=== PATIENT | female | born 1980 | race Caucasian/White ===

== ENCOUNTER → 2023-11-16 | Outpatient (CLI) | payer BC ==
--- NOTE | 2023-11-16 18:50 | MM ---
Reason for Exam: Screening (asymptomatic). Baseline mammogram. Patient History: Menarche at age 8. Patient has no children. Patient used Hormonal Contraceptives for 1 year. Mother had breast cancer at or over age 50. Last menstrual period: 10/17/2023 Risk Values: Sandra 5 year model risk: 1.5%. NCI Lifetime model risk: 19.9%. Prior Study Comparison: Patient's first Mammogram. Tissue Density: The breasts are heterogeneously dense, which may obscure small masses. Findings: Analyzed By CAD. Suspect global asymmetry upper quadrant left breast. Further evaluation recommended to put any suspicious persisting abnormality on additional views. Otherwise, no suspicious microcalcification or other discrete abnormality is seen. Overall Assessment: Incomplete: need additional imaging evaluation, BI-RAD 0 Management: Special View Mammogram of the left breast. Diagnostic Breast Ultrasound of the left breast. . [facility] will attempt to contact patient to return for supplemental views and ultrasound if indicated. Electronically signed and approved by: Sabrina Arias M.D. Radiologist
== END | disposition home or self-care (01) ==
LOC: RADMAMWWP 08:40
PROVIDERS: ATTEND Family Medicine
DX: Z12.31 Encounter for screening mammogram for malignant neoplasm of breast (principal); R92.333 Mammographic heterogeneous density, bilateral breasts; Z80.3 Family history of malignant neoplasm of breast; Z92.0 Personal history of contraception
CPT/HCPCS: 77063; 77067

== ENCOUNTER → 2023-11-24 | Outpatient (CLI) | payer BC ==
--- NOTE | 2023-11-24 10:54 | USB ---
Reason for Exam: Additional evaluation requested from abnormal screening. Patient History: Menarche at age 8. Patient has no children. Patient used Hormonal Contraceptives for 1 year. Mother had breast cancer at or over age 50. Risk Values: Sandra 5 year model risk: 1.5%. NCI Lifetime model risk: 19.9%. Technique: Method: Targeted. Doppler: Color. Patient Position: Supine. Prior Study Comparison: 11/16/2023 Bilateral MG 3D screening mammo w/cad, [facility]. Findings: The upper outer quadrant of the left breast, the axilla of the left breast and the retroareolar of the left breast were scanned. There is a ill-defined hypoechoic area with posterior shadowing at the 2:00 position 7 cm from the nipple. This be within the region of the focal asymmetric density on mammogram. Biopsy is recommended. Left axillary lymph node is present. This may have mild thickened cortex measuring 0.4 cm. Normal less than 0.3 cm. Overall Assessment: Suspicious, BI-RAD 4 Management: Ultrasound Core Biopsy of the left breast. A clinical breast exam by your physician is recommended on an annual basis and results should be correlated with mammographic findings. This exam should not preclude additional follow-up of suspicious palpable abnormalities. Results were given to the patient verbally at the time of exam. [facility], , 11/24/2023 10:51 AM. Electronically signed and approved by: Spencer Martinez D.O. Radiologis
--- NOTE | 2023-11-24 10:55 | MM ---
Reason for Exam: Additional evaluation requested from abnormal screening. Last screening mammogram was performed less than 1 month ago. Patient History: Menarche at age 8. Patient has no children. Patient used Hormonal Contraceptives for 1 year. Mother had breast cancer at or over age 50. Risk Values: Sandra 5 year model risk: 1.5%. NCI Lifetime model risk: 19.9%. Prior Study Comparison: 11/16/2023 Bilateral MG 3D screening mammo w/cad, [facility]. Tissue Density: Left: There are scattered areas of fibroglandular density. Findings: Analyzed By CAD. The pattern is stable. Focal asymmetry on nipple in profile standard mediolateral view appears to disperse under compression suspicious underlying mass is not identified. Focal asymmetry remains on the mediolateral oblique compression view. This appears dispersed on the craniocaudal compression view. Additional evaluation of this region with ultrasound is recommended. No suspicious groups of microcalcifications, spiculated or lobular masses, architectural distortion or other secondary signs of malignancy are mammographically apparent. Overall Assessment: Incomplete: need additional imaging evaluation, BI-RAD 0 Management: Diagnostic Breast Ultrasound of the left breast. A negative mammogram report should not preclude additional follow up of suspicious palpable abnormalities. Patient should continue monthly self breast exam. A clinical breast exam by your physician is recommended on an annual basis and results should be correlated with mammographic findings. Note on Sandra scores and lifetime risk: 1. A Sandra score greater than 3% is considered moderate risk. If this is the case, consider specialist referral to assess eligibility for a risk reducing agent. 2. If overall lifetime risk for the development of breast cancer is 20% or higher, the patient may qualify for future screening with alternating mammogram and breast MRI. [facility], , 11/24/2023 10:52 AM. Electronically signed and approved by: Spencer Martinez D.O. Radiologis
== END | disposition home or self-care (01) ==
LOC: RADMAMWWP 10:06
PROVIDERS: ATTEND Family Medicine
CPT/HCPCS: 77061; 77065

== ENCOUNTER → 2023-12-09 | Day surgery (SDC) | payer BC ==
--- NOTE | 2023-12-09 09:30 | USB ---
Risk Values: Sandra 5 year model risk: 1.5%. NCI Lifetime model risk: 19.9%. Procedure Description: 6 month follow up - not real area on live scan pe Findings: At Real-time imaging no distinct mass could be appreciated at the left 2:00 position 7 cm from the nipple. Patient was advised six-month follow-up would be prudent and she agreed. Biopsy was therefore discontinued. Management: Diagnostic Breast Ultrasound of the left breast in 6 months. A clinical breast exam by your physician is recommended on an annual basis and results should be correlated with mammographic findings. This exam should not preclude additional follow-up of suspicious palpable abnormalities. Results were given to the patient verbally at the time of exam. [facility], , 12/09/2023 9:27 AM. Electronically signed and approved by: Kaz Hu M.D. Radiologis
== END ==
LOC: RADUSWWP 07:47
PROVIDERS: ATTEND Surgery
DX: R92.8 Other abnormal and inconclusive findings on diagnostic imaging of breast (principal)